=== PATIENT | male | born 1980 | race Caucasian/White ===

== ENCOUNTER 2016-08-04 15:09 | Emergency (ER) | payer OTHER ==
[~2016-08-04] VITALS: Wt 95.3 kg
[~2016-08-04 15:09] MED LIST: AUGMENTIN 875875 MG PO; KEFLEX500 MG PO; MOTRIN800 MG PO; NKHM; TESSALON PERLE100 M1 PO; TRAMADOL HCL50 MG PO; VICODIN 5/500 505 MG PO; VICODIN 500 MG-1 TAB PO
== END 2016-08-04 15:59 | disposition home or self-care (01) ==
LOC: ED 15:09
DX: T15.01XA Foreign body in cornea, right eye, initial encounter (principal); F17.200 Nicotine dependence, unspecified, uncomplicated; X58.XXXA Exposure to other specified factors, initial encounter; Y93.89 Activity, other specified; Y92.89 Other specified places as the place of occurrence of the external cause; Y99.9 Unspecified external cause status

== ENCOUNTER 2017-04-30 12:38 | Emergency (ER) | payer OTHER ==
[~2017-04-30] VITALS: Ht 175.2 cm; Wt 95.3 kg
[2017-04-30] MEDS ORDERED: PREDNISONE10 MG PO (13:56)
[2017-04-30] MEDS ORDERED: ROBITUSSIN DM 105 ML PO (13:56)
[2017-04-30] MEDS ORDERED: CLARITIN10 MG PO (13:56)
[2017-04-30] MEDS ORDERED: FLONASE ALLERG9.9 ML NAS (13:56)
== END 2017-04-30 14:18 | disposition home or self-care (01) ==
LOC: ED 12:38
DX: J20.9 Acute bronchitis, unspecified (principal); F17.200 Nicotine dependence, unspecified, uncomplicated

== ENCOUNTER 2025-03-01 20:52 | Emergency (ER) | payer OTHER ==
[~2025-03-01] VITALS: Wt 106.6 kg
[~2025-03-01 20:52] MED LIST changes: +CLARITIN10 MG PO; +FLONASE ALLERG9.9 ML NAS; +PREDNISONE10 MG PO; +ROBITUSSIN DM 105 ML PO
[2025-03-01] MEDS ORDERED: Sulfamethoxazole/Trimethopri 1 TAB TAB PO ONE (22:10)
[2025-03-01] MEDS ORDERED: Bacitracin Zinc 14 GM TUBE T ONE (22:10)
[2025-03-01] MEDS ORDERED: SEPTDS PO (22:44)
== END 2025-03-01 22:58 | disposition home or self-care (01) ==
LOC: ED 20:52
DX: J34.0 Abscess, furuncle and carbuncle of nose (principal)